=== PATIENT | female | born 1965 | race Caucasian/White ===

== ENCOUNTER 2016-11-03 11:58 | Day surgery (SDC) | payer OTHER ==
[~2016-11-03] VITALS: Ht 157.5 cm; Wt 123.0 kg
[~2016-11-03 11:58] MED LIST: ATOR20TA9 PO; CARI350T PO; DIAZ5TAB4 PO; FENO160T PO; FLUO40CA2 PO; FLUT16SP2 NS; GABA300C10 PO; HYDR-3240 PO; HYDR25TA6 PO; LACT1CAP35 PO; LEVO150T47 PO; LIRA0.6P2 SC; LOSA100T6 PO; LOSA1TAB17 PO; METF500T4 PO; OXYC1TAB7 PO; OXYC5TAB3 PO; ZOLP-413 PO; nature thyroid PO; progesterone cream TP; vitamin D PO
[2016-11-03] MEDS ORDERED: LACTATED RINGERS 1,000 ML IV SCH (12:36)
[2016-11-03] MEDS ORDERED: MULTIVITAMIN PO (12:44)
[2016-11-03] MEDS ORDERED: FLUT9.9S NAS (12:44)
[2016-11-03] MEDS ORDERED: CYAN100T PO (12:44)
[2016-11-03] MEDS ORDERED: CALCIUM PO (12:44)
[2016-11-03 12:49] VITALS: BP 135/89
[2016-11-03] MEDS ORDERED: LIDOCAINE 1%, 2ML ONE (13:10)
[2016-11-03] MEDS ORDERED: MIDAZOLAM 1 MG/ML, 2ML ONE (13:11)
[2016-11-03 13:29] LABS: ASPARTATE AMINO TRANSFERASE 15 U/L (15-37); BLOOD UREA NITROGEN 9 mg/dL (7-18)
[2016-11-03] MEDS ORDERED: LIDOCAINE 1%, 2ML SQ PRN (13:30)
[2016-11-03] MEDS ORDERED: ONDANSETRON 2MG/ML, 2ML ONE (13:33)
[2016-11-03] MEDS ORDERED: PROPOFOL 10 MG/ML, 20ML ONE (13:33)
[2016-11-03] MEDS ORDERED: KETOROLAC 30 MG/1 ML ONE (13:33)
[2016-11-03] MEDS ORDERED: MIDAZOLAM 1 MG/ML, 2ML IV PRN (14:00)
[2016-11-03] MEDS ORDERED: HYDROmorphone 1 MG/ML, 1ML IV PRN (14:00)
[2016-11-03] MEDS ORDERED: ONDANSETRON 2MG/ML, 2ML IVPush PRN (14:00)
[2016-11-03] MEDS ORDERED: PROMETHAZINE 25 MG/ML, 1ML IV PRN (14:00)
[2016-11-03] MEDS ORDERED: OXYcodone 5 MG/5 ML ORAL.SOL UDC PO PRN (14:00)
[2016-11-03] MEDS ORDERED: ALBUTEROL SULFATE 2.5 MG/3 ML NPPB PRN (14:00)
[2016-11-03] MEDS ORDERED: EPHEDRINE 50 MG/ML, 1ML IVPush PRN (14:00)
[2016-11-03] MEDS ORDERED: LABETALOL 5MG/ML, 20ML IV PRN (14:00)
[2016-11-03] MEDS ORDERED: MEPERIDINE/PF 25MG/0.5ML IVPush PRN (14:00)
[2016-11-03] MEDS ORDERED: ACETAMINOPHEN 325 MG TABLET PO PRN (14:00)
[2016-11-03] MEDS ORDERED: METOPROLOL 1 MG/ML, 5ML IV PRN (14:00)
[2016-11-03] MEDS ORDERED: FENTANYL PF 100 MCG/2ML IV PRN (14:00)
[2016-11-03] MEDS ORDERED: hydrALAzine 20 MG/ML, 1ML IV PRN (14:00)
== END 2016-11-03 15:30 | disposition home or self-care (01) ==
LOC: OUT 11:58
PROVIDERS: ATTEND Internal Medicine Gastroenterology
DX: Z12.11 Encounter for screening for malignant neoplasm of colon (principal); K57.30 Diverticulosis of large intestine without perforation or abscess without bleeding; K29.60 Other gastritis without bleeding; I10 Essential (primary) hypertension; G47.33 Obstructive sleep apnea (adult) (pediatric); E11.9 Type 2 diabetes mellitus without complications; E66.01 Morbid (severe) obesity due to excess calories; Z68.42 Body mass index [BMI] 45.0-49.9, adult; Z85.850 Personal history of malignant neoplasm of thyroid; Z91.040 Latex allergy status; Z91.048 Other nonmedicinal substance allergy status; Z88.0 Allergy status to penicillin; E78.00 Pure hypercholesterolemia, unspecified; E03.9 Hypothyroidism, unspecified; Z98.890 Other specified postprocedural states; Z98.1 Arthrodesis status; Z90.710 Acquired absence of both cervix and uterus; E89.0 Postprocedural hypothyroidism; Z87.891 Personal history of nicotine dependence
CPT/HCPCS: 36415; 43239; 45378; 80053; 82962; 88305; 88313; 93005; J1885; J2250; J2405; J2704; J3490; J7120

== ENCOUNTER → 2016-11-17 | Outpatient (CLI) | payer OTHER ==
[~2016-11-17] MED LIST changes: +CALCIUM PO; +CYAN100T PO; +FLUT9.9S NAS; +MULTIVITAMIN PO
== END | disposition home or self-care (01) ==
LOC: CFH 16:01
PROVIDERS: ATTEND Internal Medicine Cardiovascular Disease
DX: I10 Essential (primary) hypertension (principal); R94.31 Abnormal electrocardiogram [ECG] [EKG]
CPT/HCPCS: 71020

== ENCOUNTER → 2016-11-18 | Outpatient (CLI) | payer OTHER ==
[2016-11-18 16:43] LABS: ABG COLLECTION SITE LEFT BRACHIAL; COLLATERAL CIRCULATION TESTING NORMAL
[2016-11-18 16:44] LABS: FIO2 ROOM AIR %
== END | disposition home or self-care (01) ==
LOC: LAB 16:06
PROVIDERS: ATTEND Internal Medicine Cardiovascular Disease
DX: R79.81 Abnormal blood-gas level (principal)
CPT/HCPCS: 36600; 82803

== ENCOUNTER → 2016-11-25 | Outpatient (CLI) | payer OTHER ==
[~2016-11-25] MED LIST changes: +REGADENOSON 0.4 MG/5 ML SYRINGE ONE
== END | disposition home or self-care (01) ==
LOC: CVU 06:38
PROVIDERS: ATTEND Internal Medicine Cardiovascular Disease
DX: Z01.818 Encounter for other preprocedural examination (principal); I20.9 Angina pectoris, unspecified; R94.31 Abnormal electrocardiogram [ECG] [EKG]
CPT/HCPCS: 78452; 93017; 93306; A9502; J2785